=== PATIENT | female | born 1995 | race American Indian/Alaskan Native ===

== ENCOUNTER 2018-07-28 17:03 | Emergency (ER) | payer OTHER, MEDICAID ==
[2018-07-28 17:04] VITALS: BMI 34.3
[2018-07-28 17:20] VITALS: RESP 18; O2SAT 99
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
[2018-07-28 19:02] VITALS: BP 118/68; PULSE 80; TEMP 98
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
== END 2018-07-28 19:02 | disposition home or self-care (01) ==
LOC: ED 17:03
DX: S13.4XXA Sprain of ligaments of cervical spine, initial encounter (principal); V43.62XA Car passenger injured in collision with other type car in traffic accident, initial encounter; M54.9 Dorsalgia, unspecified; R51 Headache; F17.210 Nicotine dependence, cigarettes, uncomplicated